=== PATIENT | male | born 1980 | race Caucasian/White ===

== ENCOUNTER 2023-04-06 11:22 | Inpatient (IN) | payer OTHER ==
[2023-04-06 11:43] VITALS: BMI 27.4
[2023-04-06] MEDS ORDERED: VANCOMYCIN 1,000 MG in DEXTROSE 5%-WATER - 250 ML IVPB ONE (12:44)
[2023-04-06] MEDS ORDERED: VANCOMYCIN 1 GRAM (PRE-DOCKED) 1,000 MG/250 ML BAG IVPB ONE (12:48)
[2023-04-06] MEDS ORDERED: VANCOMYCIN/WATER FOR INJ (PEG) 1,000 MG/200 ML BAG IVPB ONE (12:59)
[2023-04-06 13:03] LABS: BASO % 0.7 % (0-2.0); EOS % 3.1 % (0-4.5); HEMOGLOBIN 13.5 GM/dL (11.7-16.9); LYMPH % 23.5 % (8-40); MCH 27.5 pg (25.7-33.7); MCHC 34.5 g/dl (32.0-35.9); MEAN CELL VOLUME 79.6 fl (80-96); MONO % 5.8 % (3.8-10.2); NEUT % 66.9 % (42.8-82.8); PLATELET COUNT 324 10^3/uL (134-434); RDW 13.5 % (11.9-15.9); WHITE BLOOD COUNT 7.8 K/mm3 (4.0-10.0)
[2023-04-06] MEDS ORDERED: PIPERACILLIN/TAZOB 4.5 GM 4.5 GM in DEXTROSE 5%-WATER 100 ML IVPB ONE (13:21)
[2023-04-06 13:24] LABS: POTASSIUM 4.5 mmol/L (3.5-5.1)
[2023-04-06 13:27] LABS: ALBUMIN 3.7 g/dl (3.4-5.0); BLOOD UREA NITROGEN 15.2 mg/dL (7-18); CALCIUM 8.6 mg/dL (8.5-10.1); MAGNESIUM 2.2 mg/dL (1.8-2.4)
[2023-04-06 13:29] LABS: CREATININE 0.8 mg/dL (0.55-1.3)
[2023-04-06 13:32] LABS: BILIRUBIN,TOTAL 0.2 mg/dL (0.2-1); TOT PROT 7.5 g/dl (6.4-8.2)
[2023-04-06] MEDS ORDERED: VANCOMYCIN 1,000 MG in DEXTROSE 5%-WATER - 250 ML IVPB SCH (14:00)
[2023-04-06 14:13] LABS: URIC ACID 4.5 mg/dL (2.6-7.2)
[2023-04-06] MEDS: INSULIN SLIDING SCALE (NOVOLOG) 1 VIAL SQ SCH (17:00)
[2023-04-07] MEDS ORDERED: VANCOMYCIN/WATER FOR INJ (PEG) 1,000 MG/200 ML BAG IVPB SCH (01:00)
[2023-04-07] MEDS: INSULIN SLIDING SCALE (NOVOLOG) 1 VIAL SQ SCH ×3 (06:25→18:55)
[2023-04-07] MEDS: ACETAMINOPHEN 500 MG TABLET (FP) PO PRN (09:17)
[2023-04-07] MEDS ORDERED: CEFTRIAXONE 2 GM in DEXTROSE 5%-WATER 100 ML IVPB SCH (10:00)
[2023-04-07 10:31] LABS: BASO % 0.6 % (0-2.0); EOS % 3.3 % (0-4.5); HEMATOCRIT 37.5 % (35.4-49); HEMOGLOBIN 12.5 GM/dL (11.7-16.9); LYMPH % 22.4 % (8-40); MCH 27.1 pg (25.7-33.7); MCHC 33.2 g/dl (32.0-35.9); MEAN CELL VOLUME 81.6 fl (80-96); MEAN PLT VOLUME 8.1 fl (7.5-11.1); MONO % 4.7 % (3.8-10.2); PLATELET COUNT 301 10^3/uL (134-434); RDW 13.5 % (11.9-15.9); WHITE BLOOD COUNT 8.1 K/mm3 (4.0-10.0)
[2023-04-07 11:14] LABS: POTASSIUM 4.3 mmol/L (3.5-5.1)
[2023-04-07 11:16] LABS: CALCIUM 8.7 mg/dL (8.5-10.1)
[2023-04-07 11:17] LABS: BLOOD UREA NITROGEN 13.7 mg/dL (7-18)
[2023-04-07 11:20] LABS: CREATININE 0.7 mg/dL (0.55-1.3)
[2023-04-07] MEDS: AMPICILLIN NA/SULBACTAM NA 3 GM in SODIUM CHLORIDE 100 ML IVPB SCH ×2 (12:09→20:18)
[2023-04-07 14:33] VITALS: RESP 18
[2023-04-08] MEDS: AMPICILLIN NA/SULBACTAM NA 3 GM in SODIUM CHLORIDE 100 ML IVPB SCH ×3 (01:27→17:29)
[2023-04-08] MEDS: INSULIN SLIDING SCALE (NOVOLOG) 1 VIAL SQ SCH ×3 (06:06→16:34)
[2023-04-08] MEDS: ACETAMINOPHEN 500 MG TABLET (FP) PO PRN (09:08)
[2023-04-08 10:51] LABS: BASO % 0.5 % (0-2.0); EOS % 3.7 % (0-4.5); HEMATOCRIT 38.5 % (35.4-49); HEMOGLOBIN 13.4 GM/dL (11.7-16.9); LYMPH % 23.8 % (8-40); MCHC 34.9 g/dl (32.0-35.9); MEAN CELL VOLUME 80.1 fl (80-96); MEAN PLT VOLUME 8.1 fl (7.5-11.1); MONO % 4.9 % (3.8-10.2); NEUT % 67.1 % (42.8-82.8); PLATELET COUNT 302 10^3/uL (134-434); RBC 4.81 M/mm3 (4.00-5.60); RDW 13.5 % (11.9-15.9); WHITE BLOOD COUNT 8.1 K/mm3 (4.0-10.0)
[2023-04-08 11:08] LABS: POTASSIUM 4.5 mmol/L (3.5-5.1)
[2023-04-08 11:18] LABS: ALBUMIN 3.3 g/dl (3.4-5.0); BLOOD UREA NITROGEN 14.6 mg/dL (7-18); CALCIUM 8.8 mg/dL (8.5-10.1)
[2023-04-08 11:21] LABS: CREATININE 0.7 mg/dL (0.55-1.3)
[2023-04-08 11:23] LABS: BILIRUBIN,TOTAL 0.5 mg/dL (0.2-1)
[2023-04-09] MEDS: AMPICILLIN NA/SULBACTAM NA 3 GM in SODIUM CHLORIDE 100 ML IVPB SCH ×3 (01:45→18:00)
[2023-04-09] MEDS: ACETAMINOPHEN 500 MG TABLET (FP) PO PRN (03:57)
[2023-04-09] MEDS: INSULIN SLIDING SCALE (NOVOLOG) 1 VIAL SQ SCH ×3 (06:24→16:55)
[2023-04-09 14:29] VITALS: BP 111/61; PULSE 80; TEMP 98.3
== END 2023-04-09 18:05 | disposition home or self-care (01) | DRG 351 ==
LOC: JER 11:22 → JERBED 13:28 → J6S 14:10
PROVIDERS: ADMIT Internal Medicine; ATTEND Internal Medicine
DX: M65.88 Other synovitis and tenosynovitis, other site (principal); E11.9 Type 2 diabetes mellitus without complications; M79.89 Other specified soft tissue disorders; Z79.84 Long term (current) use of oral hypoglycemic drugs
CPT/HCPCS: 36415; 73110-TC-LT-FY; 73130-TC-LT-FY; 73140-TC-LT-FY; 73218-TC-LT; 80048; 80053; 82962; 83036; 83735; 84550; 85025; 85651; 86140; 87040; 93005; 93010; 99285-25